=== PATIENT | female | born 1995 | race Caucasian/White ===

== ENCOUNTER 2022-04-19 21:39 | Emergency (ER) | payer OTHER, MEDICAID, SELFPAY ==
[2022-04-19 22:08] VITALS: BP 140/76; PULSE 86; RESP 16; TEMP 36.6; O2SAT 98; BMI 20.1
[2022-04-19] MEDS: AMOXICILLIN/CLAV 875/125 MG 1 TAB PO (22:16)
--- NOTE | 2022-04-20 03:16 | ED.DENTAL ---
HPI - Dental/Oral General Chief complaint: Dental/Oral Stated complaint: poss tooth infection/abscess Time Seen by Provider: 04/19/22 22:02 Source: patient Mode of arrival: Ambulatory History of Present Illness HPI Narrative: 19-year-old female nonsmoker with noncontributory chronic medical history presents with a chief complaint of some pain adjacent to a left lower premolar for the past 2 days and now some swelling of her left jaw. She denies any trauma or injury. She has no foul taste in her mouth and has no difficulty swallowing or breathing. She denies other systemic complaints such as fever, chills nor nausea or vomiting. Related Data Previous Rx's Medication Instructions Recorded amoxicillin 875 mg-potassium 1 tab PO Q12H #20 tabs 04/19/22 clavulanate 125 mg tablet Allergies Allergy/AdvReac Type Severity Reaction Status Date / Time No Known Drug Allergies Allergy Verified 04/19/22 22:15 Review of Systems Review of Systems Narrative: GENERAL: Denies chills, fatigue, malaise, fever, sweats. HEENT: See HPI RESPIRATORY: Denies dyspnea, cough, wheezing, hemoptysis, sputum. CARDIOVASCULAR: Denies chest pain, palpitations, orthopnea, edema, GASTROINTESTINAL: Denies nausea, vomiting, abdominal pain, diarrhea, constipation, melena. : Denies dysuria, frequency, incontinence, hematuria, urinary retention. MUSCULOSKELETAL: denies weakness, joint pain, or bony pain SKIN: Denies rash, skin lesions, or other NEUROLOGIC: Denies weakness, headache, numbness, change in speech, confusion, seizures, incoordination. PSYCHIATRIC: No concerning psychosocial issues. 12 point review of systems is negative except for those stated above Patient History Social History Smoking Status: Never smoker Smoking Status: Never smoker Substance Use Type: does not use Exam Narrative Exam Narrative: GEN: AOx3 and in mild distress EYES: Pupils are equal, round, and reactive to light and accommodation. Extraoccular muscles are intact bilaterally. There is no subconjunctival hemorrhage or exudate. ENT: Left lateral mandibular swelling no overlying erythema, warmth or induration, no fluctuance. Intraoral exam demonstrates some erythema and discoloration adjacent to tooth 20. No obvious fluctuant mass, dental fracture or abscess amenable to drainage. Airway patent CHEST: Lungs are clear to auscultation bilaterally and free of wheezes, rales, or rhonchi. Heart rate is regular rhythm, there are no murmurs, clicks, rubs, or gallops. There is no chest wall tenderness. ABD: Abdomen is soft and nontender. There is no guarding or rebound. Bowel sounds are normal in all 4 quadrants. There is no mass or organomegaly. EXT: Full painless ROM of all extremities with no loss of sensation or strength. SKIN: Warm, pink, and dry. No erythema or rash Initial Vital Signs Initial Vital Signs: Vital Signs Temperature 97.9 F 04/19/22 22:08 Pulse Rate 86 04/19/22 22:08 Respiratory Rate 16 04/19/22 22:08 Blood Pressure 140/76 04/19/22 22:08 Pulse Oximetry 98 04/19/22 22:08 Oxygen Delivery Method 04/19/22 22:08 Course Orders Ordered: Discontinued Medications Amoxicillin/Clavulanate Potassium (Amoxicillin/Clav 875/125 Mg) 1 tab PO NOW ONE Stop: 04/19/22 22:09 Last Admin: 04/19/22 22:16 Dose: 1 tab Documented By: TOM Vital Signs Vital signs: Vital Signs - 8 hr 04/19/22 22:08 Temperature 97.9 F Pulse Rate 86 Respiratory Rate 16 Blood Pressure 140/76 Pulse Oximetry 98 Oxygen Delivery Method Room Air MDM - Dental/Oral MDM Narrative Medical decision making narrative: [19-year-old female nonsmoker with dental pain and minimal facial swelling] Multiple etiologies for patient's symptoms considered including, but not limited to: [Dental abscess, facial cellulitis, sialadenitis versus other] Exam is very reassuring and though she does have mild swelling that will require antibiotics there is no exam finding nor element of the history that would suggest incision and drainage is appropriate nor significant workup with labs or advanced imaging. Findings and discharge diagnosis discussed with patient/family followed by verbalization of understanding Return precautions discussed with patient/family whom verbalize understanding of diagnosis and plan Discharge Plan Departure Patient Disposition: Home Clinical Impression: Abscess, dental Instructions: Tooth Abscess Activity Restrictions/Additional Instructions: *You have been diagnosed with [dental abscess ] *What to do: *Please continue to take your regular medications as directed. [ x] New medication prescriptions sent to your pharmacy: [[facility] in [place] ] [ ] New medication written as a paper prescription [ ] No new medications given *Please follow up with your primary care provider in 2-3 days, call for an appointment. Let them know you were seen in the Emergency Department and that we ask that you be seen in follow up. We will electronically transmit a record of today's note if your PCP is in our system *Return to Emergency Department if you should have any new, worsening or concerning symptoms, such as [fever greater than 101 F, shaking chills, worsening pain, persistent vomiting or other bothersome symptoms] Prescriptions: New amoxicillin-pot clavulanate 875-125 mg tablet 1 tab PO Q12H Qty: 20 0RF Stand Alone Forms: Patient Portal/API
== END 2022-04-19 22:24 | disposition home or self-care (01) ==
PROVIDERS: Emergency Provider Emergency Medicine
DX: K04.7 Periapical abscess without sinus (principal)
CPT/HCPCS: 99283